=== PATIENT | male | born 1965 | race Caucasian/White ===

== ENCOUNTER → 2017-01-05 | Outpatient (CLI) | payer BC ==
--- NOTE | 2017-01-05 11:09 | DIAGNOSTIC IMAGING REPORT ---
LEFT FOOT MIN 3 VIEWS CLINICAL HISTORY: LEFT FOOT PAIN COMPARISON: None. DISCUSSION: The bones and joint spaces appear intact. There is no evidence of fracture, dislocation or bony disease. There is no evidence for soft tissue swelling. IMPRESSION: Negative study. Electronically signed by: Ty Mabry M.D. 01/05/2017 11:08 AM Dictated Date/Time: 01/05/2017 11:07 AM
== END | disposition home or self-care (01) ==
LOC: C.RDSM 13:54
PROVIDERS: ATTEND Family Medicine
DX: M79.672 Pain in left foot (principal)